=== PATIENT | female | born 1990 | race Caucasian/White ===

== ENCOUNTER 2023-04-10 16:08 | Emergency (ER) | payer OTHER ==
[~2023-04-10] VITALS: Ht 162.6 cm; Wt 59.9 kg
[2023-04-10 16:35] VITALS: BP 122/74; PULSE 82; RESP 18; TEMP 99.6; O2SAT 98
--- NOTE | 2023-04-10 17:30 | NUR ---
PT AMBULATED TO BED 9 FROM [facility]
[2023-04-10] MEDS ORDERED: NACL 0.9% 1,000 ML IV ONE (18:20)
[2023-04-10 18:39] LABS: BASOPHILS % (AUTO) 1.2 % (0.0-2.0); EOSINOPHILS % (AUTO) 0.8 % (0.0-4.0); HEMATOCRIT 38.3 % (36-48); HEMOGLOBIN 12.8 g/dL (12.0-16.0); LYMPHOCYTES # (AUTO) 1.1 K/uL (2.5-16.5); LYMPHOCYTES % (AUTO) 32.8 % (20.5-51.1); MEAN CORPUSCULAR HEMOGLOBIN 29 pg (27-31); MEAN CORPUSCULAR HGB CONC 34 g/dL (33-37); MEAN CORPUSCULAR VOLUME 85.2 fL (80-94); MONOCYTES # (AUTO) 0.4 K/uL (0.8-1.0); MONOCYTES % (AUTO) 11.9 % (1.7-9.3); NEUTROPHILS # (AUTO) 1.8 K/uL (1.8-7.7); NEUTROPHILS % (AUTO) 53.3 % (42.2-75.2); PLATELET COUNT (AUTO) 208 K/uL (140-450); RED CELL DISTRIBUTION WIDTH 12.8 % (11.6-13.7); WHITE BLOOD COUNT (AUTO) 3.3 K/uL (4.8-10.8)
[2023-04-10 19:05] LABS: ALBUMIN 3.7 g/dL (3.4-5.0); ANION GAP 11.8 (8-16); ASPARTATE AMINOTRANSFERASE 23 U/L (15-37); CARBON DIOXIDE 26.2 mmol/L (21-32); CHLORIDE 104 mmol/L (98-107); CREATININE 0.8 mg/dL (0.6-1.3); GFR ARICAN-AMERICAN 106 mL/min (>90); GLUCOSE 90 mg/dL (74-106); SODIUM SERUM 138 mmol/L (136-145); TOTAL BILIRUBIN 0.2 mg/dL (0.0-1.0); UREA NITROGEN, BLOOD 13 mg/dL (7-18)
[2023-04-10 19:08] LABS: APPEARANCE,URINE CLEAR (CLEAR); BILIRUBIN,URINE NEGATIVE (NEGATIVE); BLOOD, URINE NEGATIVE (NEGATIVE); COLOR,URINE YELLOW (YELLOW); LEUKOCYTE ESTERASE ,URINE NEGATIVE (NEGATIVE); NITRITE, URINE NEGATIVE (NEGATIVE); UGLUCOSE NEGATIVE (NEGATIVE)
--- NOTE | 2023-04-10 19:15 | NUR ---
Pt report given to RANCHO BENEDICT. Transfer of care at this time.
[2023-04-10 20:16] VITALS: BP 122/74; PULSE 82; RESP 18; TEMP 99.6; O2SAT 98
--- NOTE | 2023-04-10 20:18 | NUR ---
Patient discharged with v/s stable. Written and verbal after care instructions given and explained. Patient verbalized understanding. Ambulatory with to home. All questions addressed prior to discharge. Advised to follow up with PMD.
== END 2023-04-10 20:18 | disposition home or self-care (01) ==
LOC: MED 16:08
DX: G43.909 Migraine, unspecified, not intractable, without status migrainosus (principal); Z88.8 Allergy status to other drugs, medicaments and biological substances; Z79.899 Other long term (current) drug therapy
CPT/HCPCS: 36415; 80053; 81003; 81025; 84484; 85025; 93005; 96360; 99284; J7030

== ENCOUNTER 2023-04-30 21:52 | Emergency (ER) | payer OTHER ==
[~2023-04-30] VITALS: Ht 154.9 cm; Wt 50.3 kg
[2023-04-30 22:31] VITALS: BP 116/72; PULSE 66; RESP 18; TEMP 97.5; O2SAT 99
[2023-04-30] MEDS ORDERED: HYDROcodone/APAP 5/325 MG 1 TAB TAB PO ONE (22:35)
[2023-04-30] MEDS ORDERED: KETOROLAC 30 MG/ML VIAL IM ONE (22:35)
--- NOTE | 2023-04-30 22:45 | NUR ---
Patient ambulated to bed 11.
--- NOTE | 2023-04-30 23:25 | NUR ---
Patient is a 33/F who came in due to 1 day history of back pain, aching, 8, assocaited with nausea and lightheadedness. Patient denies chest pain, SOB, fever/chills, vomiting/diarrhea. PMHx: SLE, Sjogren's Allergies: Reglan
[2023-04-30] MEDS ORDERED: LID5T TP (23:48)
[2023-04-30] MEDS ORDERED: CYCL-711 PO (23:48)
[2023-04-30] MEDS ORDERED: DICL100G5 TP (23:48)
[2023-05-01] MEDS ORDERED: hydrOXYzine PAMOATE 25 MG CAP PO SCH (00:25)
[2023-05-01] MEDS ORDERED: CYCLOBENZAPRINE 10 MG TAB PO ONE (00:25)
--- NOTE | 2023-05-01 00:33 | NUR ---
X-ray at bedside.
[2023-05-01 00:38] LABS: BASOPHILS # (AUTO) 0.1 K/uL (0.00-0.22); BASOPHILS % (AUTO) 1.3 % (0.0-2.0); EOSINOPHILS # (AUTO) 0.1 K/uL (0-0.4); HEMOGLOBIN 11.6 g/dL (12.0-16.0); LYMPHOCYTES # (AUTO) 1.5 K/uL (2.5-16.5); LYMPHOCYTES % (AUTO) 27.6 % (20.5-51.1); MEAN CORPUSCULAR HEMOGLOBIN 28 pg (27-31); MEAN CORPUSCULAR HGB CONC 33 g/dL (33-37); MEAN CORPUSCULAR VOLUME 85.4 fL (80-94); MONOCYTES # (AUTO) 0.6 K/uL (0.8-1.0); MONOCYTES % (AUTO) 11.5 % (1.7-9.3); NEUTROPHILS # (AUTO) 3.1 K/uL (1.8-7.7); NEUTROPHILS % (AUTO) 58.6 % (42.2-75.2); PLATELET COUNT (AUTO) 201 K/uL (140-450); RED CELL DISTRIBUTION WIDTH 13.2 % (11.6-13.7); WHITE BLOOD COUNT (AUTO) 5.3 K/uL (4.8-10.8)
[2023-05-01] MEDS ORDERED: LIDOCAINE 5% 1 EA PATCH TP ONE (00:43)
[2023-05-01 00:55] LABS: ALBUMIN 3.4 g/dL (3.4-5.0); ANION GAP 11.7 (8-16); CARBON DIOXIDE 27.9 mmol/L (21-32); CREATININE 0.9 mg/dL (0.6-1.3); POTASSIUM 3.6 mmol/L (3.5-5.1); TOTAL BILIRUBIN 0.3 mg/dL (0.0-1.0)
[2023-05-01] MEDS ORDERED: LIDOCAINE 5% 1 EA PATCH TP SCH ×2 (00:55→09:00)
--- NOTE | 2023-05-01 01:25 | NUR ---
Patient awake and comfortable in bed. No signs of acute distress at this time. Side rails up and call light within reach.
--- NOTE | 2023-05-01 01:50 | NUR ---
Unable to do pain reassessment for Lidocaine patch as patient was discharged at 0150. Prior to discharge, patient verbalized improvement of pain to 5/10.
[2023-05-01 02:01] VITALS: BP 110/70; PULSE 60; RESP 15; TEMP 97.5; O2SAT 100
--- NOTE | 2023-05-01 02:04 | NUR ---
Patient discharged with v/s stable. Written and verbal after care instructions given and explained. Patient alert, oriented and verbalized understanding of instructions. Ambulatory with steady gait. All questions addressed prior to discharge. ID band removed. Patient advised to follow up with PMD. Rx of FLEXERIL, DICLOFENAC, LIDOCAINE given. Patient educated on indication of medication including possible reaction and side effects. Opportunity to ask questions provided and answered.
== END 2023-05-01 02:04 | disposition home or self-care (01) ==
LOC: MED 21:52
DX: S29.012A Strain of muscle and tendon of back wall of thorax, initial encounter (principal); Z79.899 Other long term (current) drug therapy; Z88.8 Allergy status to other drugs, medicaments and biological substances; X50.0XXA Overexertion from strenuous movement or load, initial encounter; Y92.89 Other specified places as the place of occurrence of the external cause; Y93.89 Activity, other specified; Y99.8 Other external cause status
CPT/HCPCS: 36415; 71045; 80053; 81025; 84484; 85025; 85379; 93005; 99285; J1885; Q0092; Q0177

== ENCOUNTER 2023-05-13 20:51 | Emergency (ER) | payer OTHER ==
[~2023-05-13] VITALS: Ht 154.9 cm; Wt 50.8 kg
[~2023-05-13 20:51] MED LIST: CYCL-711 PO; DICL100G5 TP; LID5T TP
[2023-05-13 21:40] VITALS: BP 131/84; PULSE 60; RESP 18; TEMP 97.8; O2SAT 100
--- NOTE | 2023-05-13 21:43 | NUR ---
TO LOBBY A/WBED VIA WHEELCHAIR WITH THE KIDS
[2023-05-13 22:49] VITALS: BP 131/84; PULSE 60; RESP 18; TEMP 97.8; O2SAT 100
--- NOTE | 2023-05-13 22:49 | NUR ---
PATIENT LEFT WITHOUT BEING SEEN BY DR. CARRASCO. NO FURTHER CARE PROVIDED FOR PATIENT.
== END 2023-05-13 22:49 | disposition left against medical advice (07) ==
LOC: MED 20:51
DX: R53.1 Weakness (principal); R51.9 Headache, unspecified; Z53.21 Procedure and treatment not carried out due to patient leaving prior to being seen by health care provider
CPT/HCPCS: 99281